=== PATIENT | male | born 1940 | race Caucasian/White ===

== ENCOUNTER 2017-09-08 20:16 | Emergency (ER) | payer OTHER ==
[~2017-09-08] VITALS: Ht 177.8 cm; Wt 128.6 kg
[~2017-09-08 20:16] MED LIST: ADULT LOW STREN81 M3 PO; ALLOPURINOL100 MG PO; COLACE100 MG PO; COZAAR25 MG PO; JANUVIA100 MG PO; LISINOPRIL5 MG PO; LOPID600 M1 PO; ZIAC 2.5/6.251 TAB PO
[2017-09-09 00:16] VITALS: BP 132/67
== END 2017-09-09 00:17 | disposition home or self-care (01) ==
LOC: RME 20:16 → EME 20:16 → RME 09-09 00:17
DX: S01.81XA Laceration without foreign body of other part of head, initial encounter (principal); W18.2XXA Fall in (into) shower or empty bathtub, initial encounter; Y93.E1 Activity, personal bathing and showering; Y92.002 Bathroom of unspecified non-institutional (private) residence as the place of occurrence of the external cause; Z23 Encounter for immunization; I10 Essential (primary) hypertension; E11.9 Type 2 diabetes mellitus without complications; Z79.84 Long term (current) use of oral hypoglycemic drugs; Z79.82 Long term (current) use of aspirin; Z87.891 Personal history of nicotine dependence
CPT/HCPCS: 70450; 72125; 99281; 99284